=== PATIENT | male | born 1970 | race Two or more races ===

== ENCOUNTER 2019-01-31 06:10 | Day surgery (SDC) | payer OTHER ==
[~2019-01-31 06:10] MED LIST: ALTACE5 MG PO; SYNTHROID100 MCG PO
[2019-01-31] MEDS ORDERED: DIBUCAINE30 GM TOP (08:20)
[2019-01-31] MEDS ORDERED: PERCOCET 5-3251 EACH PO (08:21)
[2019-01-31] MEDS ORDERED: VOLTAREN-XR100 MG PO (08:22)
== END 2019-01-31 14:40 | disposition home or self-care (01) ==
LOC: CIR.AMB 06:10
DX: K60.3 Anal fistula (principal)